=== PATIENT | male | born 1960 | race Caucasian/White ===

== ENCOUNTER → 2017-02-03 | Outpatient (CLI) | payer OTHER ==
--- NOTE | ~2017-02-03 | US6 ---
[facility] A Service of [facility] RADIOLOGY TEXT RESULTS PATIENT: YOLANDA JAMES LOCATION: [facility] : 56 UNIT #: [id number] AGE: [address]: Edd Charles MD SEX: M ORDER DR: [id number] [address] [address] [id number] O MR#: [id number] Acc #: [id number] NAME: YOLANDA JAMES : 1960 SEX: M STUDY DATE/TIME: 02/03/2017 8:52 UNIT: SG ROOM: STUDY DESCRIPTION: US Abdominal Limited Attending Physician: Edd Charles M.D. Referring Physician: Edd Charles M.D. Ordering Physician: Edd Charles M.D. Primary Care Physician: Edd Charles M.D. MEDICAL IMAGING REPORT This report is preliminary unless electronic signature is present. EXAM Right upper quadrant ultrasound HISTORY Abnormal elevated liver function test. Patient had blood work done a week ago. TECHNIQUE Robertson-scale and color Doppler sonographic images were obtained through the right upper quadrant. FINDINGS Liver is mildly enlarged measuring about 16 cm in craniocaudal dimensions. I do think there is probably some diffuse hepatic steatosis and there is some coarsening of hepatic echotexture. No focal hepatic lesions are seen. Main portal vein is patent with hepatopetal flow. There is no intra- or extrahepatic biliary dilatation. No definite masses are seen. I think the patient's gallbladder appears unremarkable with no stones or sludge seen and no gallbladder wall thickening or pericholecystic fluid identified. Patient does not have any evidence of hydronephrosis. There is probably a cyst within the right kidney measuring about 1.7 x 1.6 x 1.8 cm. Pancreas is not well visualized due to overlying bowel gas. IMPRESSION 1. Patient's liver is mildly enlarged and the patient does appear to have some steatosis and coarsening of hepatic echotexture. No focal hepatic lesions are seen. 2. Right renal cyst. [facility] A Service of [facility] RADIOLOGY TEXT RESULTS PATIENT: YOLANDA JAMES LOCATION: [facility] : 56 UNIT #: [id number] AGE: [address]: Edd Charles MD SEX: M ORDER DR: Dictated by... Natasha Nielsen M.D. THIS IS AN ELECTRONICALLY VERIFIED REPORT Natasha Nielsen M.D. at 02/04/2017 4:33 PM AFF/psc TD: 02/03/2017 23:52 JOB #: [id number] MEDICAL IMAGING REPORT Page 1 of 1
== END | disposition home or self-care (01) ==
LOC: SGUS 08:40
DX: R74.8 Abnormal levels of other serum enzymes (principal); R16.0 Hepatomegaly, not elsewhere classified; N28.1 Cyst of kidney, acquired
CPT/HCPCS: 76705